=== PATIENT | female | born 1940 | race Caucasian/White ===

== ENCOUNTER 2018-05-19 08:06 | Day surgery (SDC) | payer MEDICARE ==
[~2018-05-19] VITALS: Ht 162.6 cm; Wt 67.2 kg
[~2018-05-19 08:06] MED LIST: BENTYL 20MG20 MG/TAB PO; COMPAZINE 110 MG/TAB PO; LOMOTIL 0.025 M1 TAB PO; PHENERGAN 25 TA25 MG PO; ZOFRAN 4MG T4 MG/TAB PO
[2018-05-19] MEDS ORDERED: TAZTIA360 PO (08:25)
[2018-05-19] MEDS ORDERED: PROBIOTIC FORMU1 CAP PO (08:25)
[2018-05-19] MEDS ORDERED: MULTI VITAMINS1 TAB PO (08:26)
[2018-05-19 08:42] VITALS: BP 161/91; PULSE 86; TEMP 98.2
[2018-05-19 11:50] VITALS: BP 152/75; PULSE 65; TEMP 98.1
--- NOTE | 2018-05-19 11:50 | NUR ---
Patient returned to [facility]. Patient ambulated to recliner without any issues. Alert and oriented. No complaints of pain or nausea. Family at bedside. VSS WNL. Requesting coffee and muffin at this time. Call rojas within reach. Will continue to monitor.
[2018-05-19 12:05] VITALS: BP 136/78; PULSE 74
[2018-05-19 12:25] VITALS: BP 134/73; PULSE 72
--- NOTE | 2018-05-19 12:42 | NUR ---
Discharge instructions reviewed with patient and family. Verbalizes understanding. All questions answered. Patient wheeled down to lobby. To be driven home by daughter.
== END 2018-05-19 12:42 | disposition home or self-care (01) ==
LOC: SDCO 08:06
DX: Z12.11 Encounter for screening for malignant neoplasm of colon (principal); Z85.038 Personal history of other malignant neoplasm of large intestine; K63.89 Other specified diseases of intestine; K64.0 First degree hemorrhoids; K57.30 Diverticulosis of large intestine without perforation or abscess without bleeding; Z90.49 Acquired absence of other specified parts of digestive tract; I10 Essential (primary) hypertension; Z79.899 Other long term (current) drug therapy
CPT/HCPCS: J2250; J3010; J7030

== ENCOUNTER 2023-12-04 11:01 | Emergency (ER) | payer MEDICARE ==
[~2023-12-04] VITALS: Ht 154.9 cm; Wt 60.5 kg
[~2023-12-04 11:01] MED LIST changes: +COZAAR 25MG25 MG/TAB PO; +MULTI VITAMINS1 TAB PO; +PROBIOTIC FORMU1 CAP PO; +TAZTIA360 PO
[2023-12-04 11:12] VITALS: BP 150/80; TEMP 98
[2023-12-04] MEDS ORDERED: PREDNISONE20 MG PO (12:09)
[2023-12-04 12:24] VITALS: PULSE 84
== END 2023-12-04 12:16 | disposition home or self-care (01) ==
LOC: COL.ER 11:01
DX: S40.862A Insect bite (nonvenomous) of left upper arm, initial encounter (principal); W57.XXXA Bitten or stung by nonvenomous insect and other nonvenomous arthropods, initial encounter

== ENCOUNTER 2023-12-09 08:29 | Emergency (ER) | payer MEDICARE ==
[~2023-12-09] VITALS: Ht 154.9 cm; Wt 61.4 kg
[~2023-12-09 08:29] MED LIST changes: +PREDNISONE20 MG PO
[2023-12-09 08:32] VITALS: TEMP 97.6
[2023-12-09] MEDS ORDERED: Morphine 4 MG/ML VIAL IV ONE ×2 (08:45→09:45)
[2023-12-09] MEDS ORDERED: Ondansetron 4 MG/2 ML VIAL IV ONE ×2 (08:45→09:45)
[2023-12-09 09:56] LABS: BASO # 0.1 K/mm3 (0.0-0.2); BASO % 0.6 % (0.0-2.0); EOS # 0.3 K/mm3 (0.0-0.7); EOS % 2.4 % (0.0-4.0); GRAN # 8.8 K/mm3 (1.4-6.5); HEMATOCRIT 40.9 % (37.0-47.0); HEMOGLOBIN 13.4 g/dl (12.5-16.0); LYMPH # 2.8 K/mm3 (1.2-3.4); LYMPH % 21.3 % (20.0-51.0); MEAN CELL VOLUME 99 fl (80.0-100.0); MEAN CORPUSCULAR HEMOGLOBIN 32 pg (27-31); MEAN CORPUSCULAR HGB CONC 33 g/dl (33.0-37.0); MEAN PLATELET VOLUME 11.6 fl (7.4-10.4); MONO % 7.9 % (1.7-9.3); PLATELET COUNT 183 K/mm3 (130-400); RED BLOOD COUNT 4.13 M/mm3 (4.10-5.30); REDCELL DISTRIBUTION WIDTH-CV 13.1 % (11.5-14.5)
[2023-12-09 10:03] LABS: ALANINE AMINOTRANSFERASE 21 U/L (0-55); ALBUMIN 3.7 g/dL (3.4-4.8); ALKALINE PHOSPHATASE 68 U/L (40-150); ANION GAP 12 mmol/L (7-16); AST,SGOT 22 U/L (5-34); BILIRUBIN,TOTAL 0.5 mg/dL (0.2-1.2); BLOOD UREA NITROGEN 27 mg/dL (10-20); CALCIUM 8.8 mg/dL (8.4-10.2); CHLORIDE 108 mEq/L (98-107); CREATININE, serum 1.38 mg/dL (0.57-1.11); GLUCOSE 80 mg/dL (70-99); LIPASE 56 U/L (8-78); POTASSIUM 3.9 mEq/L (3.5-4.5); SODIUM 141 mEq/L (136-145); TOTAL PROTEIN 7.1 g/dl (6.2-8.1)
[2023-12-09 10:09] LABS: TROPONIN-I < 0.010 ng/mL (0.00-0.033)
[2023-12-09] MEDS ORDERED: Iohexol 300 - 100 ML VIAL IV ONE (10:29)
[2023-12-09] MEDS ORDERED: NS 100 ML IV SCH (10:29)
[2023-12-09] MEDS ORDERED: NORCO 325 MG-51 TAB PO (12:11)
[2023-12-09 12:36] VITALS: BP 121/61; PULSE 67
== END 2023-12-09 12:36 | disposition home or self-care (01) ==
LOC: COL.ER 08:29
PROVIDERS: Personal Emergency Response Attendant
DX: S42.251A Displaced fracture of greater tuberosity of right humerus, initial encounter for closed fracture (principal); S00.81XA Abrasion of other part of head, initial encounter; I71.9 Aortic aneurysm of unspecified site, without rupture; W01.0XXA Fall on same level from slipping, tripping and stumbling without subsequent striking against object, initial encounter; Y92.34 Swimming pool (public) as the place of occurrence of the external cause
CPT/HCPCS: J2270; J2405; Q9967